=== PATIENT | male | born 1995 | race Two or more races ===

== ENCOUNTER 2017-02-01 18:04 | Emergency (ER) | payer OTHER ==
[~2017-02-01] VITALS: Ht 180.3 cm; Wt 77.1 kg
[2017-02-01 18:04] VITALS: BP 135/83
== END 2017-02-01 18:26 ==
LOC: ER 18:08
DX: S00.83XA Contusion of other part of head, initial encounter (principal); Y04.0XXA Assault by unarmed brawl or fight, initial encounter; Y92.89 Other specified places as the place of occurrence of the external cause; Y93.89 Activity, other specified; Y99.8 Other external cause status